=== PATIENT | female | born 2000 | race Caucasian/White ===

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

== ENCOUNTER 2018-06-13 16:11 | Outpatient (CLI) | payer MEDICAID ==
--- NOTE | 2018-06-14 17:49 | Ultrasound Report ---
Reason: CHOLELITHIASIS Procedure Date: 06/13/2018 Accession Number: [id number] / [id number] Procedure: US - Abdomen Limited CPT Code: FULL RESULT: EXAM: ABDOMEN ULTRASOUND LIMITED, RUQ EXAM DATE: 06/13/2018 05:03 PM. CLINICAL HISTORY: Known cholelithiasis with intermittent abdominal pain. COMPARISON: 05/19/2013 7:37 PM. TECHNIQUE: Real-time scanning was performed with static images obtained. FINDINGS: Liver: Liver parenchyma is heterogeneous and moderately hyperechoic. No discrete liver masses or intrahepatic bile duct dilation. However, evaluation for masses is limited secondary to the echogenicity. 17.2 cm. Main portal vein flow: Hepatopetal. Gallbladder: Gallstones are noted. No pericholecystic fluid or gallbladder wall thickening. Negative sonographic Morrow's sign. Biliary System: CBD measures 3.5 mm. No intrahepatic or extrahepatic ductal dilatation. Pancreas: Not seen well. Right Kidney: 11 cm. No hydronephrosis. Aorta and IVC: Normal. Other: None. IMPRESSION: 1. Enlarged fatty liver. No mass. 2. Gallstones without secondary signs of acute cholecystitis. Normal caliber common bile duct. Pancreas not well seen. [facility]
== END 2018-06-13 16:12 | disposition home or self-care (01) ==
LOC: DI 16:11
PROVIDERS: ATTEND Nurse Practitioner Family
DX: K80.20 Calculus of gallbladder without cholecystitis without obstruction (principal); K76.0 Fatty (change of) liver, not elsewhere classified
CPT/HCPCS: 76705

== ENCOUNTER 2018-12-02 17:26 | Emergency (ER) | payer MEDICAID ==
[2018-12-02 18:39] LABS: BILIRUBIN,URINE NEGATIVE (NEGATIVE); GLUCOSE, URINE (UA) NEGATIVE (NEGATIVE); KETONES,URINE (UA) NEGATIVE (NEGATIVE); LEUKOCYTE ESTERASE, URINE NEGATIVE (NEGATIVE); NITRITE,URINE NEGATIVE (NEGATIVE); OCCULT BLOOD,URINE NEGATIVE (NEGATIVE); PH,URINE 6.5 PH (5.0-7.5); PROTEIN,URINE NEGATIVE (NEGATIVE); UROBILINOGEN,URINE 0.2 (NORMAL) E.U./dL (NORMAL)
[2018-12-02 18:43] LABS: CLARITY,URINE CLEAR (CLEAR); HCG UR QUAL NEGATIVE
--- NOTE | 2018-12-02 19:27 | ED Physician Documentation ---
History of Present Illness - Stated complaint Stated Complaint: SORE THROAT, DIZZY,TIRED - Chief complaint Chief Complaint: General - History obtained from History obtained from: Patient - History of Present Illness Timing: How many days ago (3-4) Pain level max: 3 Pain level now: 3 - Additonal information Additional information: 18-year-old female presents the emergency department with sore throat, fatigue for the past several days. States she has swelling in her axillary lymph nodes.. No vomiting. No diarrhea. Worse with swallowing, nothing makes it better. Review of Systems Constitutional: denies: Fever, Chills GI: denies: Vomiting, Diarrhea Skin: denies: Rash Musculoskeletal: denies: Neck pain, Back pain Neurologic: denies: Headache PD PAST MEDICAL HISTORY - Past Medical History Cardiovascular: None Respiratory: Asthma Endocrine/Autoimmune: None GI: Ulcers, Cholelithiasis : None HEENT: None Psych: Depression, Anxiety, Panic attacks, Post traumatic stress disorder, Eating disorder Musculoskeletal: None Derm: None Other Past Medical History: non-alcoholic fatty liver - Past Surgical History Past Surgical History: No - Present Medications Home Medications: Ambulatory Orders Medication Instructions Recorded Confirmed Levonorgestrel-Ethin Estradiol 1 each PO DAILY 03/15/17 12/02/18 [Falmina-28 Tablet] - Allergies Allergies/Adverse Reactions: Allergies Allergy/AdvReac Type Severity Reaction Status Date / Time clarithromycin Allergy Unknown Verified 12/02/18 17:45 latex Allergy Unknown Verified 12/02/18 17:45 Penicillins Allergy Unknown Verified 12/02/18 17:45 - Social History Does the pt smoke?: No Smoking Status: Never smoker Does the pt drink ETOH?: No Does the pt have substance abuse?: No - Immunizations Immunizations are current?: No Immunizations: No immun - POLST Patient has POLST: No PD ED PE NORMAL - Vitals Vital signs reviewed: Yes - General General: Alert and oriented X 3, No acute distress - HEENT HEENT: Moist mucous membranes, Other (Mild posterior pharyngeal erythema without tonsillar exudates. Uvula midline. Normal phonation. No trismus.) - Neck Neck: Supple, no meningeal sign, No adenopathy - Cardiac Cardiac: RRR, Strong equal pulses - Respiratory Respiratory: No respiratory distress, Clear bilaterally - Abdomen Abdomen: Soft, Non tender, Non distended, No organomegaly - Derm Derm: Warm and dry - Extremities Extremities: No edema, No calf tenderness / cord - Neuro Neuro: Alert and oriented X 3 Results - Vitals Vitals: Vital Signs - 24 hr 12/02/18 12/02/18 12/02/18 17:40 18:09 19:33 Temperature 37 C 37 C 36.4 C L Heart Rate 76 108 H 78 Respiratory 20 20 18 Rate Blood Pressure 143/91 H 129/93 H 146/92 H O2 Saturation 98 100 99 Oxygen O2 Source Room air - Labs Labs: Microbiology 12/02/18 17:50 Group A Strep Throat Culture - Preliminary Throat CULTURE IN PROGRESS. RESULTS TO FOLLOW. Laboratory Tests 12/02/18 12/02/18 12/02/18 17:50 18:30 18:37 Urine Color YELLOW Urine Clarity CLEAR Urine pH 6.5 Ur Specific [place] <=1.005 Urine Protein NEGATIVE Urine Glucose (UA) NEGATIVE Urine Ketones NEGATIVE Urine Occult Blood NEGATIVE Urine Nitrite NEGATIVE Urine Bilirubin NEGATIVE Urine Urobilinogen 0.2 (NORMAL) Ur Leukocyte Esterase NEGATIVE Ur Microscopic Review NOT INDICATED Urine Culture Comments NOT INDICATED Urine HCG, Qual NEGATIVE Infectious [place] Assay NEGATIVE Group A Strep Rapid Negative PD MEDICAL DECISION MAKING - ED course Complexity details: reviewed results, considered differential, d/w patient ED course: 18-year-old female with what appears to be a viral syndrome. She is well- appearing, nontoxic. Monospot is negative. Rapid strep is negative. We will continue supportive care and follow-up with her doctor. Patient is well- hydrated. Afebrile. Denies any possibility of . Patient counseled regarding signs and symptoms for which I believe and urgent re-evaluation would be necessary. Patient with good understanding of and agreement to plan and is comfortable going home at this time This document was made in part using voice recognition software. While efforts are made to proofread this document, sound alike and grammatical errors may occur. Departure - Departure Disposition: 01 Home, Self Care Clinical Impression: Viral syndrome Condition: Good Instructions: ED Viral Syndrome Follow-Up: Yamini Motta ARNP [Primary Care Provider] - Within 3 Days Comments: Your tests are all negative today. Drink plenty of water when you go home. Return if you worsen. Follow-up with your doctor for further care. Discharge Date/Time: 12/02/18 19:34
[2018-12-02 19:33] VITALS: BP 146/92
== END 2018-12-02 19:34 | disposition home or self-care (01) ==
LOC: ED 17:26
DX: B34.9 Viral infection, unspecified (principal)
CPT/HCPCS: 81001; 81003; 81025; 86308; 87070; 87086; 87430; 99282; 99283

== ENCOUNTER 2019-01-14 08:00 | Outpatient (CLI) | payer MEDICAID | END 2019-01-14 23:59 | disposition home or self-care (01) | LOC: LAB.R 08:00 | PROVIDERS: ATTEND Family Medicine | DX: J02.9 Acute pharyngitis, unspecified (principal) | CPT/HCPCS: 87070 ==

== ENCOUNTER 2019-01-14 14:06 | Outpatient (CLI) | payer MEDICAID ==
[2019-01-14 17:55] LABS: BASOPHILS # (AUTO) 0.1 10^3/uL (0.0-0.1); BASOPHILS % (AUTO) 1.1 %; EOSINOPHILS # (AUTO) 0.1 10^3/uL (0.0-0.7); EOSINOPHILS % (AUTO) 1.6 %; HGB - HEMOGLOBIN 12.5 g/dL (12.0-16.0); LYMPHOCYTES # (AUTO) 2.2 10^3/uL (1.5-3.5); LYMPHOCYTES % (AUTO) 34.7 %; MEAN CORPUSCULAR HEMOGLOBIN 28.3 pg (27.0-31.0); MEAN CORPUSCULAR HGB CONC 32.6 g/dL (32.0-36.0); MEAN CORPUSCULAR VOLUME 86.8 fL (81.0-99.0); MEAN PLATELET VOLUME 11.8 fL (7.9-10.8); MONOCYTES # (AUTO) 0.3 10^3/uL (0.0-1.0); MONOCYTES % (AUTO) 5.4 %; NEUTROPHILS # (AUTO) 3.6 10^3/uL (1.5-6.6); PLT - PLATELET COUNT 310 10^3/uL (130-450); RED BLOOD COUNT 4.41 10^6/uL (4.20-5.40); RED CELL DISTRIBUTION WIDTH 12.2 % (12.0-15.0); WHITE BLOOD COUNT 6.3 x10^3/uL (4.8-10.8)
[2019-01-14 18:32] LABS: ALBUMIN 3.9 g/dL (3.2-5.5); ALBUMIN/GLOBULIN RATIO 1.2 (1.0-2.2); BILIRUBIN,TOTAL 0.3 mg/dL (0.2-1.0); CREATININE 0.7 mg/dL (0.4-1.0); TOTAL PROTEIN 7.2 g/dL (6.7-8.2)
== END 2019-01-14 14:07 | disposition home or self-care (01) ==
LOC: LAB.S 14:06
PROVIDERS: ATTEND Registered Nurse
DX: D64.9 Anemia, unspecified (principal); R53.83 Other fatigue; J02.9 Acute pharyngitis, unspecified
CPT/HCPCS: 36415; 80053; 84443; 85025; 87070

== ENCOUNTER 2019-07-27 14:51 | Outpatient (CLI) | payer BC ==
[2019-07-27 17:03] LABS: BASOPHILS % (AUTO) 0.6 %; EOSINOPHILS # (AUTO) 0.1 10^3/uL (0.0-0.7); HGB - HEMOGLOBIN 12.5 g/dL (12.0-16.0); LYMPHOCYTES # (AUTO) 2.3 10^3/uL (1.5-3.5); LYMPHOCYTES % (AUTO) 33.3 %; MEAN CORPUSCULAR HEMOGLOBIN 27.7 pg (27.0-31.0); MEAN CORPUSCULAR HGB CONC 32.5 g/dL (32.0-36.0); MEAN CORPUSCULAR VOLUME 85.4 fL (81.0-99.0); MEAN PLATELET VOLUME 12.7 fL (7.9-10.8); MONOCYTES # (AUTO) 0.3 10^3/uL (0.0-1.0); MONOCYTES % (AUTO) 4.1 %; NEUTROPHILS # (AUTO) 4.1 10^3/uL (1.5-6.6); NEUTROPHILS % (AUTO) 60.7 %; PLT - PLATELET COUNT 278 10^3/uL (130-450); RED BLOOD COUNT 4.51 10^6/uL (4.20-5.40); RED CELL DISTRIBUTION WIDTH 12.8 % (12.0-15.0); WHITE BLOOD COUNT 6.8 x10^3/uL (4.8-10.8)
== END 2019-07-27 14:52 | disposition home or self-care (01) ==
LOC: LAB.S 14:51
PROVIDERS: ATTEND Registered Nurse
DX: N92.1 Excessive and frequent menstruation with irregular cycle (principal); F41.9 Anxiety disorder, unspecified; R53.82 Chronic fatigue, unspecified
CPT/HCPCS: 36415; 84443; 85025

== ENCOUNTER 2020-06-23 20:45 | Outpatient (CLI) | payer BC | END 2020-06-23 23:59 | disposition critical access hospital (66) | LOC: EMS 20:45 | PROVIDERS: ATTEND Emergency Medicine | DX: R10.9 Unspecified abdominal pain (principal) | CPT/HCPCS: A0425; A0429 ==

== ENCOUNTER 2020-06-23 21:13 | Day surgery (SDC) | payer BC ==
[2020-06-23 21:43] LABS: BASOPHILS % (AUTO) 0.4 %; EOSINOPHILS # (AUTO) 0.1 10^3/uL (0.0-0.7); EOSINOPHILS % (AUTO) 0.9 %; HGB - HEMOGLOBIN 12.4 g/dL (12.0-16.0); LYMPHOCYTES # (AUTO) 1.8 10^3/uL (1.5-3.5); LYMPHOCYTES % (AUTO) 19.6 %; MEAN CORPUSCULAR HEMOGLOBIN 28.1 pg (27.0-31.0); MEAN CORPUSCULAR HGB CONC 32.8 g/dL (32.0-36.0); MEAN CORPUSCULAR VOLUME 85.5 fL (81.0-99.0); MEAN PLATELET VOLUME 11.1 fL (7.9-10.8); MONOCYTES # (AUTO) 0.5 10^3/uL (0.0-1.0); MONOCYTES % (AUTO) 5.5 %; NEUTROPHILS # (AUTO) 6.6 10^3/uL (1.5-6.6); NEUTROPHILS % (AUTO) 73.3 %; PLT - PLATELET COUNT 239 10^3/uL (130-450); RED BLOOD COUNT 4.42 10^6/uL (4.20-5.40); RED CELL DISTRIBUTION WIDTH 11.9 % (12.0-15.0)
[2020-06-23 21:50] LABS: BILIRUBIN,URINE NEGATIVE (NEGATIVE); GLUCOSE, URINE (UA) NEGATIVE (NEGATIVE); KETONES,URINE (UA) NEGATIVE (NEGATIVE); LEUKOCYTE ESTERASE, URINE NEGATIVE (NEGATIVE); NITRITE,URINE NEGATIVE (NEGATIVE); OCCULT BLOOD,URINE NEGATIVE (NEGATIVE); PROTEIN,URINE NEGATIVE (NEGATIVE); UROBILINOGEN,URINE 1 (NORMAL) E.U./dL (NORMAL)
[2020-06-23 21:54] LABS: CLARITY,URINE CLEAR (CLEAR); HCG UR QUAL NEGATIVE
[2020-06-23 21:58] LABS: ALBUMIN 4.5 g/dL (3.2-5.5); ALBUMIN/GLOBULIN RATIO 1.5 (1.0-2.2); BILIRUBIN,TOTAL 0.3 mg/dL (0.2-1.0); CALCIUM 9.3 mg/dL (8.5-10.3); CREATININE 0.7 mg/dL (0.4-1.0); TOTAL PROTEIN 7.5 g/dL (6.7-8.2)
[2020-06-24] MEDS ORDERED: levoFLOXacin 500 MG/100 ML 500 MG/100 ML BAG IV STA (00:26)
[2020-06-24] MEDS ORDERED: metroNIDAZOLE 500 MG/100 ML 500 MG/100 ML BAG IV ONE (00:29)
--- NOTE | 2020-06-24 00:31 | ED Physician Documentation ---
History of Present Illness - Stated complaint Stated Complaint: ABD PX - Chief complaint Chief Complaint: Abd Pain - History obtained from History obtained from: Patient - Additonal information Additional information: Comes emergency department chief complaint of upper abdominal pain. She states that she has had 2 episodes of this this week and that both times, the pain has been very intense, but self-limited. However, patient states that the pain was stronger tonight and lasted longer. She states it finally seemed to subside on its own, though she still has had some nausea. Patient states that she forced herself to vomit once during the episode, and that seemed to help her feel better for about 10 minutes, but then the pain came back. Patient states the pain is in the epigastrium and slightly to the left. She has a history of GERD and also has a history of very large gallstones that were diagnosed when she was 13. Patient states that since her diagnosis, she has lost 50 pounds and has changed her diet, and that for the most part, this seems to have been successful in keeping the symptoms at bay. She does note that her prior gallbladder attacks felt little different than this and were centered more on the right side. Patient has no further complaints at this time. Review of Systems Ten Systems: 10 systems reviewed and negative Constitutional: reports: Reviewed and negative. denies: Fever, Chills Eyes: reports: Reviewed and negative Ears: reports: Reviewed and negative Nose: reports: Reviewed and negative. denies: Rhinorrhea / runny nose Throat: reports: Reviewed and negative Cardiac: reports: Reviewed and negative. denies: Chest pain / pressure Respiratory: reports: Reviewed and negative. denies: Dyspnea, Cough GI: reports: Abdominal Pain, Nausea, Vomiting : reports: Reviewed and negative Skin: reports: Reviewed and negative Musculoskeletal: reports: Reviewed and negative Neurologic: reports: Reviewed and negative Psychiatric: reports: Reviewed and negative Endocrine: reports: Reviewed and negative Immunocompromised: reports: Reviewed and negative PD PAST MEDICAL HISTORY - Past Medical History Past Medical History: Yes Cardiovascular: None Respiratory: Asthma Endocrine/Autoimmune: None GI: GERD, Ulcers, Cholelithiasis, Other : None HEENT: None Psych: Depression, Anxiety, Panic attacks, Post traumatic stress disorder, Eating disorder Musculoskeletal: None Derm: None Other Past Medical History: Gallstones, GB disease - Past Surgical History Past Surgical History: Yes General: Other - Present Medications Home Medications: Ambulatory Orders Medication Instructions Recorded Confirmed Levonorgestrel-Ethin Estradiol 1 each PO DAILY 03/15/17 06/23/20 [Falmina-28 Tablet] Bupropion HCl [Wellbutrin Xl] 300 mg PO DAILY 06/23/20 06/23/20 Omeprazole 40 mg PO DAILY 06/23/20 06/23/20 - Allergies Allergies/Adverse Reactions: Allergies Allergy/AdvReac Type Severity Reaction Status Date / Time clarithromycin Allergy Unknown Verified 06/23/20 21:24 latex Allergy Unknown Verified 06/23/20 21:24 Penicillins Allergy Unknown Verified 06/23/20 21:24 - Social History Does the pt smoke?: No Smoking Status: Never smoker Does the pt drink ETOH?: No Does the pt have substance abuse?: No - Immunizations Immunizations are current?: Yes Immunizations: No immun - POLST Patient has POLST: No PD ED PE NORMAL - Vitals Vital signs reviewed: Yes - General General: Alert and oriented X 3, No acute distress, Well developed/nourished - HEENT HEENT: Atraumatic, PERRL, EOMI, Moist mucous membranes - Neck Neck: Supple, no meningeal sign - Cardiac Cardiac: RRR, No murmur - Respiratory Respiratory: No respiratory distress, Clear bilaterally - Abdomen Abdomen: Soft, Non tender, Non distended - Back Back: No CVA TTP - Derm Derm: Normal color, Warm and dry, No rash - Extremities Extremities: No deformity, No edema, No calf tenderness / cord - Neuro Neuro: Alert and oriented X 3, outside medical sales representative 2-12 intact, Normal speech, Other (grossly intact otherwise) - Psych Psych: Normal mood, Normal affect Results - Vitals Vitals: Vital Signs - 24 hr 06/23/20 06/23/20 06/23/20 21:07 21:35 22:26 Temperature 36.0 C L 36.3 C L Heart Rate 85 94 97 Respiratory 18 16 16 Rate Blood Pressure 128/76 136/78 H 142/83 H O2 Saturation 100 100 99 06/23/20 06/24/20 06/24/20 23:35 00:30 00:53 Temperature 36.5 C 36.5 C Heart Rate 84 78 78 Respiratory 14 16 16 Rate Blood Pressure 102/75 129/85 H 129/85 H O2 Saturation 100 100 100 Oxygen O2 Source Room air - Labs Labs: Laboratory Tests 06/23/20 06/23/20 06/23/20 21:35 21:38 21:38 WBC 9.0 RBC 4.42 Hgb 12.4 Hct 37.8 MCV 85.5 MCH 28.1 MCHC 32.8 RDW 11.9 L Plt Count 239 MPV 11.1 H Neut # (Auto) 6.6 Lymph # (Auto) 1.8 [place] # (Auto) 0.5 Eos # (Auto) 0.1 Baso # (Auto) 0.0 Absolute Nucleated RBC 0.00 Nucleated RBC % 0.0 Sodium 140 Potassium 3.8 Chloride 100 L Carbon Dioxide 25 Anion Gap 15.0 H BUN 16 Creatinine 0.7 Estimated GFR (MDRD) 105 Glucose 149 H Calcium 9.3 Total Bilirubin 0.3 AST 23 ALT 19 Alkaline Phosphatase 47 Total Protein 7.5 Albumin 4.5 Globulin 3.0 Albumin/Globulin Ratio 1.5 Lipase 48 Urine Color YELLOW Urine Clarity CLEAR Urine pH 6.0 Ur Specific [place] 1.025 Urine Protein NEGATIVE Urine Glucose (UA) NEGATIVE Urine Ketones NEGATIVE Urine Occult Blood NEGATIVE Urine Nitrite NEGATIVE Urine Bilirubin NEGATIVE Urine Urobilinogen 1 (NORMAL) Ur Leukocyte Esterase NEGATIVE Ur Microscopic Review NOT INDICATED Urine Culture Comments NOT INDICATED Urine HCG, Qual NEGATIVE - Rads (name of study) US abd Radiology: Prelim report reviewed, EMP read indepedently, See rad report (acute cholecystitis) PD MEDICAL DECISION MAKING - ED course Complexity details: reviewed old records, reviewed results, re-evaluated patient, considered differential, d/w patient ED course: The patient was worked up with labs and ultimately, ultrasound of the upper abdomen. Labs were unremarkable, including normal LFTs. Ultrasound showed a very large stone, plus some sludge and smaller stones, with gallbladder wall thickening, though no pericholecystic fluid was noted. The ultrasound was read as showing acute cholecystitis per radiologist. Dr. Li of surgery, who did feel the patient should have a cholecystectomy and agreed to admit her to his service. I spoke with the patient who expressed understanding but wanted to speak with her family before making a final decision as to whether to be admitted. I have explained to her that with the findings of cholecystitis, it is more urgent that she get her gallbladder removed and that failure to do so can result in serious complications. Patient has been given doses of Levaquin and Flagyl, as she is allergic to penicillin family. Departure - Departure Disposition: [facility] DC/Jessi Clinical Impression: Acute cholecystitis Condition: Serious Discharge Date/Time: 06/24/20 01:44
--- NOTE | 2020-06-24 00:54 | SURGERY HX AND PHYSICAL(T) ---
Surgical History & Physical - Chief Complaint/HPI Chief Complaint: Right upper quadrant abdominal pain History of Present Illness: 20-year-old female with no significant past medical history who presents with second episode of right upper quadrant pain that on work-up was notable for gallbladder wall thickening. She has been known for cholelithiasis in the past however deferred cholecystectomy historically knowing that this would likely be necessary in her future. She presents yesterday to the emergency room and surgical consult was called. - PMH/PSH/Social Hx Does the pt have a hx of MRSA?: No Eyes, Ears, Nose, Throat: None Cardiovascular: None Respiratory: Asthma Skin: None Endocrine/Autoimmune: None Gastrointestinal: GERD, Ulcers, Cholelithiasis, Other Urinary: None Musculoskeletal: None Blood Disorders: Anemia Psychiatric: Depression, Anxiety, Panic attacks, Post traumatic stress disorder, Eating disorder PMH Other: Gallstones, GB disease General: Other Smoking Status: Never smoker Does the pt drink ETOH?: No Does the pt have substance abuse?: No - Home Meds and Allergies Home Medications: Levonorgestrel-Ethin Estradiol [Falmina-28 Tablet] 1 each PO DAILY 03/15/17 Bupropion HCl [Wellbutrin Xl] 300 mg PO DAILY 06/23/20 Omeprazole 40 mg PO DAILY 06/23/20 Allergies/Adverse Reactions: Allergies Allergy/AdvReac Type Severity Reaction Status Date / Time clarithromycin Allergy Unknown Verified 06/23/20 21:24 latex Allergy Unknown Verified 06/23/20 21:24 Penicillins Allergy Unknown Verified 06/23/20 21:24 - Review of Systems Constitutional: Fever, Chills Gastrointestinal: Nausea, Abdominal pain - Vital Signs Heart Rate: 78 Blood Pressure: 129/85 Temperature: 36.5 C Respiratory Rate: 16 O2 Saturation: 100 Weight (kg): 63.503 kg Height: 1.7 m - Physical Exam General Appearance: positive: No acute distress, Alert Eyes Bilatera: positive: Normal inspection, PERRL, EOMI ENT: positive: ENT inspection nml Neck: positive: Nml inspection Respiratory: positive: Chest non-tender, No respiratory distress, Breath sounds nml. negative: Wheezes, Rales, Rhonchi Cardiovascular: positive: Regular rate & rhythm Abdomen: positive: Tenderness. negative: Guarding, Rebound Extremities: positive: Non-tender, Full ROM, Nml appearance Neurologic/Psychiatric: positive: Oriented x3, CN's nml (2-12), Motor nml, Sensation nml, Mood/affect nml - Patient Review Patient Review: Problems were reviewed with the patient during this visit. Medications were reviewed with the patient during this visit. Allergies were reviewed this patient during this visit. Pertinent Tests Reviewed: All pertitent test for this patient were reviewed. - Assessment & Plan Assessment and Plan: 20-year-old female admitted with acute cholecystitis. Cholelithiasis. Recurrent biliary colic. Advised of the indication to undergo laparoscopic cholecystectomy with intraoperative cholangiogram. Risk and benefit discussed questions answered. Patient admitted with IV antibiotics and bowel rest. No and contraindication at this time. Please note that voice recognition software was used to transcribe this note and inadvertent errors might persist in spite of review and editing. I am obliged to you for your attention. I am thankful to you for allowing me to participate with you in this care of this patient.
[2020-06-24] MEDS ORDERED: ONDANSETRON 4 MG/2 ML VIAL IVP PRN ×2 (00:57→13:10)
[2020-06-24] MEDS ORDERED: HYDROmorphone 0.5 MG/0.5 ML SYRINGE IVP PRN ×2 (00:59→13:10)
[2020-06-24 01:23] LABS: ALBUMIN 4.4 g/dL (3.2-5.5); ALBUMIN/GLOBULIN RATIO 1.4 (1.0-2.2); BILIRUBIN,TOTAL 0.5 mg/dL (0.2-1.0); CALCIUM 9.6 mg/dL (8.5-10.3); CREATININE 0.6 mg/dL (0.4-1.0); TOTAL PROTEIN 7.6 g/dL (6.7-8.2)
[2020-06-24] MEDS: D5NS W/20 MEQ KCL 1,000 ML IV SCH ×2 (01:49→10:45)
[2020-06-24 02:31] LABS: C. PNEUMONIAE- RESP PCR PANEL NOT DETECTED
[2020-06-24] MEDS: ACETAMINOPHEN 1,000 MG/100 ML 100 ML IV SCH ×3 (05:00→18:20)
[2020-06-24] MEDS: methocarbamoL 500 MG TABLET PO SCH ×3 (05:00→17:23)
[2020-06-24 05:09] LABS: BASOPHILS % (AUTO) 0.5 %; EOSINOPHILS % (AUTO) 0.5 %; HGB - HEMOGLOBIN 11.4 g/dL (12.0-16.0); LYMPHOCYTES # (AUTO) 2.1 10^3/uL (1.5-3.5); LYMPHOCYTES % (AUTO) 32.8 %; MEAN CORPUSCULAR HGB CONC 31.4 g/dL (32.0-36.0); MEAN CORPUSCULAR VOLUME 85.8 fL (81.0-99.0); MEAN PLATELET VOLUME 11.7 fL (7.9-10.8); MONOCYTES # (AUTO) 0.4 10^3/uL (0.0-1.0); NEUTROPHILS # (AUTO) 3.9 10^3/uL (1.5-6.6); PLT - PLATELET COUNT 226 10^3/uL (130-450); RED BLOOD COUNT 4.23 10^6/uL (4.20-5.40); RED CELL DISTRIBUTION WIDTH 11.7 % (12.0-15.0); WHITE BLOOD COUNT 6.5 x10^3/uL (4.8-10.8)
[2020-06-24 05:27] LABS: ALBUMIN/GLOBULIN RATIO 1.6 (1.0-2.2); BILIRUBIN,TOTAL 0.4 mg/dL (0.2-1.0); CALCIUM 9.3 mg/dL (8.5-10.3); CREATININE 0.7 mg/dL (0.4-1.0); TOTAL PROTEIN 6.5 g/dL (6.7-8.2)
--- NOTE | 2020-06-24 08:59 | Ultrasound Report ---
PROCEDURE: Abdomen Limited INDICATIONS: upper abd pn, h/o gallstones TECHNIQUE: Real-time focused scanning was performed of the abdomen, with image documentation. COMPARISON: 06/13/2018 FINDINGS: Gallstones and gallbladder sludge present in the gallbladder. Gallstones measuring up to 3 .4 cm, with multiple appearance. No pericholecystic fluid or sonographic Morrow sign. There is thicke samreen of the gallbladder wall measuring 304 mm. There is borderline enlargement of the common bile anupama t. Mild left hepatic bile duct prominence. Right kidney unremarkable. IMPRESSION: Cholelithiasis and gallbladder sludge. Gallbladder wall thickening is present and there is mild promi nence of the intra and extrahepatic bile ducts, however no pericholecystic fluid or sonographic Nalini y's sign. Please correlate clinically and with LFTs to exclude acute cholecystitis. Findings are concordant with the preliminary study interpretation provided at the time of the study. Reviewed by: Balaji Sarabia MD on 06/24/2020 8:58 AM PST Approved by: Balaji Sarabia MD on 06/24/2020 8:58 AM PST Station ID: [id number]
[2020-06-24] MEDS: metroNIDAZOLE 500 MG/100 ML 500 MG/100 ML BAG IV SCH ×2 (09:37→16:49)
[2020-06-24] MEDS: CIPROFLOXACIN 400 MG/200 ML 400 MG/200 ML BAG IV SCH (12:51)
--- NOTE | 2020-06-24 12:55 | ANESTHESIA ---
Pre-Anesthesia VS, & Labs - Diagnosis cholelithiasis - Procedure lap jaison with cholangiogram Vital Signs: Temp Pulse Resp BP Pulse Ox 37.1 C 88 16 120/75 100 06/24/20 11:39 06/24/20 11:39 06/24/20 11:39 06/24/20 11:39 06/24/20 11:39 Height: 5 ft 7 in Weight (kg): 63 kg Body Mass Index: 21.7 BMI Classification: Healthy weight - NPO >8 hours - Is Patient ?: No - Lab Results Current Lab Results: Laboratory Tests 06/24/20 04:25: Sodium 139, Potassium 3.8, Chloride 107, Carbon Dioxide 24, Anion Gap 8.0, BUN 12, Creatinine 0.7, Estimated GFR (MDRD) 105, Glucose 106 H, Calcium 9.3, Total Bilirubin 0.4, AST 18, ALT 18, Alkaline Phosphatase 46, Total Protein 6.5 L, Albumin 4.0, Globulin 2.5, Albumin/Globulin Ratio 1.6 06/24/20 04:25: WBC 6.5, RBC 4.23, Hgb 11.4 L, Hct 36.3 L, MCV 85.8, MCH 27.0, MCHC 31.4 L, RDW 11.7 L, Plt Count 226, MPV 11.7 H, Neut # (Auto) 3.9, Lymph # (Auto) 2.1, [place] # (Auto) 0.4, Eos # (Auto) 0.0, Baso # (Auto) 0.0, Absolute Nucleated RBC 0.00, Nucleated RBC % 0.0 06/24/20 01:08: Sodium 139, Potassium 3.9, Chloride 105, Carbon Dioxide 23, Anion Gap 11.0, BUN 15, Creatinine 0.6, Estimated GFR (MDRD) 125, Glucose 110 H, Calcium 9.6, Total Bilirubin 0.5, AST 24, ALT 20, Alkaline Phosphatase 45, Total Protein 7.6, Albumin 4.4, Globulin 3.2, Albumin/Globulin Ratio 1.4 06/23/20 21:38: Sodium 140, Potassium 3.8, Chloride 100 L, Carbon Dioxide 25, Anion Gap 15.0 H, BUN 16, Creatinine 0.7, Estimated GFR (MDRD) 105, Glucose 149 H, Calcium 9.3, Total Bilirubin 0.3, AST 23, ALT 19, Alkaline Phosphatase 47, Total Protein 7.5, Albumin 4.5, Globulin 3.0, Albumin/Globulin Ratio 1.5, Lipase 48 06/23/20 21:38: WBC 9.0, RBC 4.42, Hgb 12.4, Hct 37.8, MCV 85.5, MCH 28.1, MCHC 32.8, RDW 11.9 L, Plt Count 239, MPV 11.1 H, Neut # (Auto) 6.6, Lymph # (Auto) 1.8, [place] # (Auto) 0.5, Eos # (Auto) 0.1, Baso # (Auto) 0.0, Absolute Nucleated RBC 0.00, Nucleated RBC % 0.0 Fish Bones: 06/24/20 04:25 06/24/20 04:25 Home Medications and Allergies Home Medications: Ambulatory Orders Bupropion HCl [Wellbutrin Xl] 300 mg PO DAILY 06/23/20 Omeprazole 40 mg PO DAILY 06/23/20 Active Medications Hydromorphone HCl (Hydromorphone 0.5 Mg/0.5 Ml Syringe) 0.5 mg IVP Q2H PRN PRN Reason: PAIN Ciprofloxacin (Cipro 400 Mg/200 Ml) 400 mg in 200 mls @ 200 mls/hr IV Q12H [facility] Potassium Chloride/Dextrose/Sod Cl () 1,000 mls @ 125 mls/hr IV .Q8H [facility] Last Infusion: 06/24/20 12:51 Dose: 0 mls/hr Documented by: Metronidazole (Flagyl 500 Mg/100 Ml) 500 mg in 100 mls @ 100 mls/hr IV Q8H [facility] Last Infusion: 06/24/20 10:40 Dose: Infused Documented by: Acetaminophen (Ofirmev) 100 mls @ 400 mls/hr IV Q6HR [facility] Last Infusion: 06/24/20 12:50 Dose: Infused Documented by: Methocarbamol (Methocarbamol 500 Mg Tablet) 500 mg PO Q6HR [facility] Last Admin: 06/24/20 11:48 Dose: 500 mg Documented by: Ondansetron HCl (Ondansetron 4 Mg/2 Ml Vial) 4 mg IVP Q6HR PRN PRN Reason: Nausea / Vomiting Levonorgestrel-Ethin Estradiol [Falmina-28 Tablet] 1 each PO DAILY 10/27/17 Bupropion HCl [Wellbutrin Xl] 300 mg PO DAILY 06/23/20 Omeprazole 40 mg PO DAILY 06/23/20 Allergies/Adverse Reactions: Allergies Allergy/AdvReac Type Severity Reaction Status Date / Time clarithromycin Allergy Unknown Verified 06/23/20 21:24 latex Allergy Unknown Verified 06/23/20 21:24 Penicillins Allergy Unknown Verified 06/23/20 21:24 Anes History & Medical History - Anesthetic History Anesthesia Complications: reports: No previous complications - Medical History Cardiovascular: reports: None Pulmonary: reports: Asthma Gastrointestinal: reports: GERD, Ulcers, Cholelithiasis, Other Urinary: reports: None Musculoskeletal: reports: None Endocrine/Autoimmune: reports: None Blood Disorders: reports: Anemia Skin: reports: None Smoking Status: Never smoker History of Cancer?: No Other Past Medical History: Gallstones, GB disease - Surgical History General: Other Exam General: Alert, Oriented x3 Dental: WNL Mouth Opening: Greater than 4 Fingerbreadths Mallampati classification: I Respiratory: Lungs clear Cardiovascular: Regular rate Mental/Cognitive Status: Alert/Oriented X3 Plan Anesthesia Type: General Consent for Procedure(s) Verified and Reviewed: Yes Code Status: Attempt Resuscitation ASA classification: 2-Mild systemic disease Is this case an emergency?: No
[2020-06-24] MEDS ORDERED: NALOXONE 0.4 MG/ML VIAL IVP PRN (13:10)
[2020-06-24] MEDS ORDERED: ePHEDrine 50 MG/ML VIAL IVP PRN (13:10)
[2020-06-24] MEDS ORDERED: MORPHINE 2 MG/ML CARPUJECT IVP PRN (13:10)
[2020-06-24] MEDS ORDERED: fentaNYL 100 MCG/2 ML VIAL IVP PRN (13:10)
[2020-06-24] MEDS ORDERED: METOCLOPRAMIDE 10 MG/2 ML VIAL IVP PRN (13:10)
[2020-06-24] MEDS ORDERED: ATROPINE ABBOJECT 1 MG/10 ML SYRINGE IVP PRN (13:10)
[2020-06-24] MEDS ORDERED: IOTHALAMATE MEGLUMINE 50 ML VIAL ONE (13:23)
[2020-06-24] MEDS ORDERED: LIDOCAINE 2%-EPI 1:100000 20 ML MDV ONE (13:23)
[2020-06-24] MEDS ORDERED: BUPIVACAINE 0.5% PF 30 ML VIAL ONE (13:23)
[2020-06-24] MEDS ORDERED: MIDAZOLAM 2 MG/2 ML VIAL ONE (13:37)
[2020-06-24] MEDS ORDERED: PROPOFOL 200 MG/20 ML VIAL IVP ONE ×2 (13:39→15:33)
[2020-06-24] MEDS ORDERED: LACTATED RINGERS 1,000 ML IV SCH (14:00)
[2020-06-24] MEDS ORDERED: BUPIVACAINE 0.5% PF 30 ML VIAL INFIL ONE (14:05)
[2020-06-24] MEDS ORDERED: LIDOCAINE 2%-EPI 1:100000 20 ML MDV SUBQ ONE (14:05)
[2020-06-24] MEDS ORDERED: DEXAMETHASONE 4 MG/ML VIAL ONE (14:10)
[2020-06-24] MEDS ORDERED: ALBUTEROL 1 PUFF INH ONE ×2 (14:15→15:46)
[2020-06-24] MEDS ORDERED: IOTHALAMATE MEGLUMINE 50 ML VIAL IVP ONE (14:53)
[2020-06-24] MEDS ORDERED: ONDANSETRON 4 MG/2 ML VIAL ONE (15:03)
[2020-06-24] MEDS ORDERED: fentaNYL 100 MCG/2 ML VIAL ONE (15:03)
[2020-06-24] MEDS ORDERED: KETOROLAC 30 MG/ML VIAL ONE (15:03)
[2020-06-24] MEDS ORDERED: GLYCOPYRROLATE 1 MG/5 ML VIAL ONE (15:04)
[2020-06-24] MEDS ORDERED: NEOSTIGMINE 1 MG/1 ML 10 ML MDV ONE (15:04)
[2020-06-24] MEDS ORDERED: LACTATED RINGERS 1,000 ML IV ONE (15:29)
--- NOTE | 2020-06-24 15:36 | OPERATIVE REPORT ---
Operative Report - General Admit Date: 06/24/20 Procedure Date: 06/24/20 Planned Procedure: 1. Diagnostic laparoscopy 2. Laparoscopic cholecystectomy 3. Possible laparoscopic assisted cholangiography Pre-Op Diagnosis: Biliary colic; Cholecystitis; Cholelithiasis Procedure Performed: 1. Diagnostic laparoscopy 2. Laparoscopic cholecystectomy 3. Laparoscopic assisted cholangiography 4. Open umbilical hernia repair Post Op Diagnosis: Same; critical view of safety achieved; normal cholangiogram - Procedure Note Primary Surgeon: Rico Secondary Surgeon: Rajan Anesthesia Provider: Elizabeth Anesthesia Technique: General ET tube, Local Pathology: Gall bladder Estimated Blood Loss (mL): 10 Indications: See EMR Findings: 1. Critical view of safety achieved 2. Intraoperative cholangiogram with normal left and right intrahepatic biliary ductal systems 3. Intraoperative cholangiogram with no evidence of injury or aberrant biliary system 4. Drainage into duodenum without any obstructive element Complications: None - Other Other Information/Narrative: Pending final report.
[2020-06-24] MEDS ORDERED: HYDROmorphone 0.5 MG/0.5 ML SYRINGE ONE (16:00)
--- NOTE | 2020-06-24 16:04 | XRAY Report ---
PROCEDURE: OR Cholangiogram INDICATIONS: CHOLANGIOGRAM COMPARISON: None. CONTRAST: CONTRAST: Y FINDINGS: Biliary ducts: The surgeon injected contrast into the biliary ducts after cannulation of the cystic duct stump. Visualized intra- and extrahepatic bile ducts are normal in caliber, without strictures. No intraluminal filling defects to suggest retained ductal stones or sludge. No evidence for iatro genic ductal injury. Duodenum: Contrast flows promptly through the sphincter of Oddi into the duodenum, which appears nor mal in caliber. IMPRESSION: Expected intraoperative appearance Reviewed by: Balaji Sarabia MD on 06/24/2020 4:02 PM PST Approved by: Balaji Sarabia MD on 06/24/2020 4:02 PM PST Station ID: [id number]
--- NOTE | 2020-06-24 16:31 | ANESTHESIA POST OP EVALUATION ---
Anesthesia Post Eval - Post Anesthesia Eval Vitals: Last Vital Signs Temp 37.1 C 06/24/20 15:45 Pulse 116 H 06/24/20 16:05 Resp 22 06/24/20 16:05 BP 124/83 H 06/24/20 16:05 Pulse Ox 99 06/24/20 16:05 CV Function Including HR & BP: positive: Stable Pain Control: positive: Satisfactory Nausea & Vomiting: positive: Negative Mental Status: positive: Patient Participates Respiratory Status: Airway Patent Hydration Status: Satisfactory Anesthesia Complications: positive: None
[2020-06-24] MEDS: oxyCODONE 5 MG TABLET PO PRN ×2 (17:20→21:08)
--- NOTE | 2020-06-24 18:39 | PHARMACY PROGRESS NOTE ---
- Best Possible Medication History Admit Date and Time: 06/24/20 0054 Processed by: Nursing Medication History completed: Yes As the person ultimately responsible for medication therapy, providers are able to order a medication from an existing home medication list in [facility] via the "Reconcile Routine" prior to Confirmation of that medication by manager sales support. Such practice is discouraged except when the physician, in their clinical judgment, deems that a medical need exists for a medication without regard to previous use.
[2020-06-25] MEDS: methocarbamoL 500 MG TABLET PO SCH ×3 (00:42→11:58)
[2020-06-25] MEDS: ACETAMINOPHEN 1,000 MG/100 ML 100 ML IV SCH ×3 (00:43→11:57)
[2020-06-25] MEDS: CIPROFLOXACIN 400 MG/200 ML 400 MG/200 ML BAG IV SCH ×2 (01:51→13:39)
[2020-06-25] MEDS: D5NS W/20 MEQ KCL 1,000 ML IV SCH ×3 (02:07→10:47)
[2020-06-25] MEDS: metroNIDAZOLE 500 MG/100 ML 500 MG/100 ML BAG IV SCH (03:00)
[2020-06-25 05:12] LABS: BASOPHILS % (AUTO) 0.3 %; HGB - HEMOGLOBIN 10.8 g/dL (12.0-16.0); LYMPHOCYTES % (AUTO) 26.8 %; MEAN CORPUSCULAR HEMOGLOBIN 27.6 pg (27.0-31.0); MEAN CORPUSCULAR HGB CONC 31.8 g/dL (32.0-36.0); MEAN PLATELET VOLUME 11.4 fL (7.9-10.8); MONOCYTES # (AUTO) 0.7 10^3/uL (0.0-1.0); MONOCYTES % (AUTO) 8.7 %; NEUTROPHILS # (AUTO) 4.8 10^3/uL (1.5-6.6); NEUTROPHILS % (AUTO) 63.8 %; PLT - PLATELET COUNT 199 10^3/uL (130-450); RED BLOOD COUNT 3.91 10^6/uL (4.20-5.40); RED CELL DISTRIBUTION WIDTH 11.9 % (12.0-15.0); WHITE BLOOD COUNT 7.6 x10^3/uL (4.8-10.8)
[2020-06-25] MEDS: oxyCODONE 5 MG TABLET PO PRN ×2 (05:23→09:30)
[2020-06-25 05:25] LABS: ALBUMIN 3.5 g/dL (3.2-5.5); ALBUMIN/GLOBULIN RATIO 1.4 (1.0-2.2); BILIRUBIN,TOTAL 0.5 mg/dL (0.2-1.0); CALCIUM 8.7 mg/dL (8.5-10.3); CREATININE 0.6 mg/dL (0.4-1.0)
[2020-06-25] MEDS ORDERED: metroNIDAZOLE 500 MG/100 ML 500 MG/100 ML BAG IV SCH (11:00)
--- NOTE | 2020-06-25 12:26 | Discharge Plan ---
Discharge Plan Problem Reviewed?: Yes Disposition: Home, Self Care Condition: Fair Diet: Regular Activity Restrictions: Activity as Tolerated Shower Restrictions: No Driving Restrictions: No No Smoking: If you smoke, Please STOP! Call for help. Follow-up with: WILFREDO ARTIS PA-C [Primary Care Provider] -
--- NOTE | 2020-06-25 12:28 | DISCHARGE SUMMARY ---
"Discharge Summary Admit Date: 06/24/20 Discharge Date: 06/25/20 Discharging Provider: janiya penny md Code Status: Attempt Resuscitation Condition at Discharge: Good - DIAGNOSES Admission Diagnoses: cholecystitis Discharge Diagnoses with Status of Each Condition: home in good condition - HPI History of Present Illness: admitted with cholecystitis. lap cholecystectomy 06/24/2020. home in good condition - CONSULTS | PROCEDURES Procedures: lap cholecystectomy - ALLERGIES Allergies/Adverse Reactions: Allergies Allergy/AdvReac Type Severity Reaction Status Date / Time clarithromycin Allergy Unknown Verified 06/23/20 21:24 latex Allergy Unknown Verified 06/23/20 21:24 Penicillins Allergy Unknown Verified 06/23/20 21:24 - MEDICATIONS Home Medications: Ambulatory Orders Medication Instructions Recorded Confirmed Levonorgestrel-Ethin Estradiol 1 each PO DAILY 03/15/17 06/23/20 [Falmina-28 Tablet] Bupropion HCl [Wellbutrin Xl] 300 mg PO DAILY 06/23/20 06/23/20 Omeprazole 40 mg PO DAILY 06/23/20 06/23/20 - PHYSICAL EXAM AT DISCHARGE General Appearance: positive: No acute distress, Alert Eyes Bilateral: positive: Normal inspection, No scleral icterus ENT: positive: No signs of dehydration Respiratory: positive: No respiratory distress Abdomen: positive: No distention Neurologic/Psychiatric: positive: Oriented x3 - LABS Result Diagrams: 06/25/20 05:05 06/25/20 05:05 - FOLLOW UP Follow Up: Dr Gómez. Please call with any concerns Please call to make an appointment in the surgery office light diet for a few days [phone]"
[2020-06-25 13:24] VITALS: BP 114/56
== END 2020-06-25 14:00 | disposition home or self-care (01) ==
LOC: EDUNIT# → ED 21:13 → UNDOADMIN 06-24 00:54 → SDS 06-24 00:54 → MS2 06-24 00:54 → UNDODISIN 06-25 14:00 → SDS 06-25 14:00
PROVIDERS: ATTEND Surgery
PROC: 0FT44ZZ Resection of Gallbladder, Percutaneous Endoscopic Approach (ICD-10-PCS; principal; 2020-06-23)
DX: K80.12 Calculus of gallbladder with acute and chronic cholecystitis without obstruction (principal); Z20.822 Contact with and (suspected) exposure to COVID-19; K42.9 Umbilical hernia without obstruction or gangrene; J45.909 Unspecified asthma, uncomplicated; K21.9 Gastro-esophageal reflux disease without esophagitis; F41.9 Anxiety disorder, unspecified; F32.9 Major depressive disorder, single episode, unspecified
CPT/HCPCS: 0202U; 36415; 47563; 74300; 76705; 80048; 80053; 81003; 81025; 83690; 85025; 99283; 99285; A9270; C1758; J0131; J1170; J7120; Q9961; 81001; 87086

== ENCOUNTER 2020-10-07 15:13 | Outpatient (CLI) | payer BC | END 2020-10-07 15:14 | disposition home or self-care (01) | LOC: COV 15:13 | PROVIDERS: ATTEND Family Medicine | DX: R05 Cough (principal); R07.0 Pain in throat; J34.89 Other specified disorders of nose and nasal sinuses; Z20.822 Contact with and (suspected) exposure to COVID-19 ==